=== PATIENT | male | born 1980 | race Two or more races ===

== ENCOUNTER 2017-11-06 22:16 | Emergency (ER) | payer OTHER ==
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
[2017-11-06 23:06] VITALS: BP 132/92; PULSE 101; RESP 18; TEMP 98.6; O2SAT 95
== END 2017-11-07 00:31 | disposition home or self-care (01) ==
PROC: 0CQ1XZZ Repair Lower Lip, External Approach (ICD-10-PCS; principal; 2017-11-06)
DX: S01.511A Laceration without foreign body of lip, initial encounter (principal); Z87.891 Personal history of nicotine dependence; Y04.0XXA Assault by unarmed brawl or fight, initial encounter; Y92.149 Unspecified place in prison as the place of occurrence of the external cause; Y93.89 Activity, other specified